=== PATIENT | female | born 1960 | race Caucasian/White ===

== ENCOUNTER 2020-10-13 00:23 | Emergency (ER) | payer OTHER, MEDICAID, SELFPAY ==
[2020-10-13 00:36] VITALS: BP 122/59; PULSE 104; RESP 20; TEMP 37.1; O2SAT 96; BMI 34.7
--- NOTE | 2020-10-13 00:51 | DI.RAD.S_ITS ---
PROCEDURE: XR THORACIC SPINE 3V INDICATIONS: pain TECHNIQUE: 3 views of the thoracic spine were acquired. COMPARISON: None. FINDINGS: Bones: No fractures or dislocations. No suspicious bony lesions. 12 pairs of ribs are noted, and appear intact where visualized. Soft tissues: No paravertebral stripe thickening. IMPRESSION: No evidence acute bony abnormality of the thoracic spine. If clinical suspicion and/or symptoms persist, further assessment with repeat plain films, or advanced imaging (e.g., CT, MRI, or bone scan) may be helpful for further assessment. Comment: Final report is concordant with preliminary interpretation provided by [facility]. Dictated by: Royal Metz M.D. on 10/13/2020 at 6:23 Approved by: Royal Metz M.D. on 10/13/2020 at 6:23
--- NOTE | 2020-10-13 00:51 | DI.RAD.S_ITS ---
PROCEDURE: XR CERVICAL SPINE 2V OR 3V INDICATIONS: pain injury TECHNIQUE: 3 view(s) of the cervical spine were acquired. COMPARISON: None. FINDINGS: Bones: No fractures or dislocations to the C7 level. T1 partially visualized. Moderate cervical spondylosis. Disc height loss and uncovertebral joint osteophyte at C5-C6. Multilevel facet arthropathy. The lateral masses of C1 appear intact on the odontoid view. No suspicious bony lesions. Soft tissues: No prevertebral soft tissue swelling. IMPRESSION: 1. Good visualization to C7. T1 partially visualized. No evidence acute cervical fracture or dislocation. 2. Moderate cervical spondylosis. Comment: Final report is concordant with preliminary interpretation provided by [facility]. Dictated by: Royal Metz M.D. on 10/13/2020 at 6:28 Approved by: Royal Metz M.D. on 10/13/2020 at 6:32
--- NOTE | 2020-10-13 00:51 | DI.RAD.S_ITS ---
PROCEDURE: XR LUMBAR SPINE 2-3V INDICATIONS: pain TECHNIQUE: 3 views of the lumbar spine were acquired. COMPARISON: None. FINDINGS: Bones: 5 [id number] vertebrae are present. There is normal bony alignment. No vertebral body compression fractures. No suspicious bony lesions. Multilevel degenerative disc space loss, severe at L5-S1 with joint space obliteration. There is prominent multilevel lower lumbar facet arthropathy. Suspect canal stenosis. Soft tissues: Overlying bowel gas pattern is normal. No suspicious soft tissue calcifications. IMPRESSION: Lower lumbar degenerative disc disease and prominent facet arthropathy. Consider canal stenosis. No evidence acute bony abnormality of the lumbar spine. If clinical suspicion and/or symptoms persist, further assessment with repeat plain films, or advanced imaging (e.g., CT, MRI, or bone scan) may be helpful for further assessment. Dictated by: Royal Metz M.D. on 10/13/2020 at 6:25 Approved by: Royal Metz M.D. on 10/13/2020 at 6:27
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
[2020-10-13] MEDS: KETOROLAC 30 MG/ML VIAL IM (01:02)
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
[2020-10-13] MEDS: HYDROCODONE/ACET 5/325 PREPACK 1 BOTTLE MISC (02:26)
[2020-10-13 02:33] VITALS: BP 101/60; PULSE 81; RESP 16; TEMP 36.6; O2SAT 97
== END 2020-10-13 02:34 | disposition home or self-care (01) ==
PROVIDERS: Emergency Provider Emergency Medicine
DX: S20.219A Contusion of unspecified front wall of thorax, initial encounter (principal); M54.9 Dorsalgia, unspecified
CPT/HCPCS: 71101; 72040; 72072; 72100; 96372; 99284; J1885